=== PATIENT | male | born 1995 | race Caucasian/White ===

== ENCOUNTER 2023-09-20 12:01 | Emergency (ER) | payer BC ==
[~2023-09-20] VITALS: Ht 172.7 cm; Wt 63.5 kg
[2023-09-20 12:01] VITALS: BP_SYST 140; PULSE 105; RESP 18; TEMP 98; O2SAT 98
[2023-09-20] MEDS ORDERED: OMEP20CA15 PO (13:37)
[2023-09-20 13:54] VITALS: BP_SYST 142; PULSE 84; RESP 18; TEMP 98; O2SAT 98
== END 2023-09-20 13:49 | disposition home or self-care (01) ==
LOC: SED 12:01
DX: K62.5 Hemorrhage of anus and rectum (principal); K64.4 Residual hemorrhoidal skin tags; R03.0 Elevated blood-pressure reading, without diagnosis of hypertension; Z79.899 Other long term (current) drug therapy
CPT/HCPCS: 99282